=== PATIENT | male | born 1975 | race Caucasian/White ===

== ENCOUNTER 2017-09-11 17:10 | Emergency (ER) | payer BC, OTHER ==
--- NOTE | 2017-09-11 17:29 | ERD ---
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 He was drawing blood on the patient today with a butterfly needle and Vacutainer. He sustained a needlestick on the right thenar eminence underneath the glove. He had scant bleeding and no active bleeding. He has a puncture wound which is sealed. His tetanus is up-to-date as well as his hepatitis B vaccinations. ROS All systems reviewed and are negative except as per history of present illness. Physical Exam Physical Exam Const: [] Head: Atraumatic Eyes: Normal Conjunctiva ENT: Normal External Ears, Nose and Mouth. Neck: Full range of motion..~ No meningismus. Resp: Clear to auscultation bilaterally Cardio: Regular rate and rhythm, no murmurs Abd: Soft, non tender, non distended. Normal bowel sounds Skin: No petechiae or rashes barely visible sealed puncture wound without active bleeding on the right thenar eminence. No restricted range of motion weakness or erythema. Back: No midline or flank tenderness Ext: No cyanosis, or edema Neur: Awake and alert Psych: Normal Mood and Affect Procedures/MDM Needlestick panel was obtained with hep C RNA on the patient. Additional request for HIV and hepatitis C recommended on source patient who is still hospitalized. Risks and benefits of HIV prophylaxis were discussed with patient and patient declines. Patient will be advised to follow-up with employee health for serial laboratory evaluations per needlestick protocol. Departure Condition: Stable ERASMO CEDENO MD Sep 11, 2017 17:29
[2017-09-11 17:41] LABS: BASOPHILS % 0.8 % (0.0-2.0); EOSINOPHILS # 0.1 10^3/ul (0.0-0.5); EOSINOPHILS % 2.6 % (0.0-7.0); HEMOGLOBIN 15.6 g/dl (14.0-18.0); LYMPHOCYTES # 1.7 10^3/ul (0.8-2.9); LYMPHOCYTES % 33.3 % (15.0-51.0); MEAN CORPUSCULAR HEMOGLOBIN 28.5 pg (29.0-33.0); MEAN CORPUSCULAR HGB CONC 33.9 g/dl (32.0-37.0); MEAN CORPUSCULAR VOLUME 83.9 fl (82.0-101.0); MEAN PLATELET VOLUME 8.5 fl (7.4-10.4); MONOCYTE # 0.7 10^3/ul (0.3-0.9); MONOCYTES % 13.6 % (0.0-11.0); NEUTROPHIL # 2.5 10^3/ul (1.6-7.5); NEUTROPHILS % 49.3 % (39.0-77.0); PLATELET COUNT 258 10^3/UL (140-415); RED BLOOD COUNT 5.48 10^6/ul (4.70-6.10); RED CELL DISTRIBUTION WIDTH 11.6 % (11.5-14.5)
[2017-09-11 18:48] LABS: ALANINE AMINOTRANSFERASE 49 IU/L (13-69); ALBUMIN 4.6 g/dl (3.3-4.9); ALKALINE PHOSPHATASE 120 IU/L (42-121); ASPARTATE AMINO TRANSFERASE 32 IU/L (15-46); BILIRUBIN,INDIRECT 0.6 mg/dl (0-1.1); BILIRUBIN,TOTAL 0.6 mg/dl (0.2-1.3); TOTAL PROTEIN 8.1 g/dl (6.1-8.1)
== END 2017-09-11 20:19 | disposition home or self-care (01) ==
LOC: E/R 17:10
DX: S61.431A Puncture wound without foreign body of right hand, initial encounter (principal); W46.0XXA Contact with hypodermic needle, initial encounter; Y92.239 Unspecified place in hospital as the place of occurrence of the external cause
CPT/HCPCS: 80076; 85025; 86703; 86706; 86803; 87340; 87522; 99283